=== PATIENT | female | born 1980 | race Caucasian/White ===

== ENCOUNTER 2019-08-19 20:16 | Emergency (ER) | payer OTHER ==
[~2019-08-19] VITALS: Ht 162.6 cm; Wt 68.0 kg
[2019-08-19 20:26] VITALS: BP 132/83
--- NOTE | 2019-08-19 20:46 | NUR ---
Patient discharged to home in stable condition. Written and verbal after care instructions given. Patient verbalizes understanding of instruction. Pt ambulatory with a steady gait
== END 2019-08-19 20:47 | disposition home or self-care (01) ==
LOC: ER 20:20
DX: J32.9 Chronic sinusitis, unspecified (principal); G43.909 Migraine, unspecified, not intractable, without status migrainosus; Z90.89 Acquired absence of other organs

== ENCOUNTER 2019-08-20 17:58 | Emergency (ER) | payer OTHER ==
[~2019-08-20] VITALS: Ht 162.6 cm; Wt 68.0 kg
--- NOTE | 2019-08-20 18:13 | NUR ---
PT BIB C/O L FACIAL SWELLING AND HEADACHE, PT IS AAOX4, NOT IN RESPIRATORY DISTRESS, HOOKED TO MONITOR, KEPT RESTED AND COMFORTABLE, WILL CONTINUE TO MONITOR.
--- NOTE | 2019-08-20 18:23 | NUR ---
SEEN AND EXAMINED BY ZIA FARAH
--- NOTE | 2019-08-20 18:28 | NUR ---
URINE SPECIMEN COLLECTED AND SENT TO LAB.
[2019-08-20] MEDS ORDERED: ONDANSETRON HCL/PF 4 MG/2 ML VIAL ONE (18:29)
[2019-08-20] MEDS ORDERED: IV NS 0.9% 1,000 ML BAG IV ONE (18:30)
[2019-08-20] MEDS ORDERED: MORPHINE SULFATE INJ 2 MG/ML DISP.SYRIN IV ONE (18:30)
[2019-08-20] MEDS ORDERED: MORPHINE SULFATE INJ 4 MG/ML DISP.SYRIN ONE (18:30)
[2019-08-20] MEDS ORDERED: ONDANSETRON HCL/PF 4 MG/2 ML VIAL IVP ONE (18:30)
--- NOTE | 2019-08-20 18:30 | NUR ---
IV LINE ESTABLISHED, BLOOD DRAWN AND SENT TO LAB.
[2019-08-20 18:32] LABS: BASOPHILS # (AUTO) 0.1 /CMM (0.0-0.2); BASOPHILS % (AUTO) 0.6 % (0.0-2.0); EOSINOPHILS % (AUTO) 0.8 % (0.0-6.0); HEMATOCRIT 42 % (33-45); HEMOGLOBIN 13.9 g/dL (11.5-14.8); LYMPHOCYTES # (AUTO) 1.3 /CMM (0.8-4.8); LYMPHOCYTES % (AUTO) 9.8 % (20.0-44.0); MEAN CORPUSCULAR HGB CONC 33 g/dl (31.0-36.0); MEAN CORPUSCULAR VOLUME 92 fL (82-100); MONOCYTES # (AUTO) 0.7 /CMM (0.1-1.30); MONOCYTES % (AUTO) 4.9 % (2.0-12.0); NEUTROPHILS # (AUTO) 11.3 /CMM (1.8-8.9); NEUTROPHILS % (AUTO) 83.9 % (43.0-81.0); PLATELET COUNT (AUTO) 217 /CMM (150-450); RED BLOOD CELL COUNT(AUTO) 4.53 MIL/uL (4.0-5.2); WHITE BLOOD COUNT (AUTO) 13.4 K/uL (4.3-11.0)
[2019-08-20 18:42] LABS: CALCIUM, SERUM 9.4 mg/dL (8.5-10.1); CREATININE 0.8 mg/dL (0.6-1.3); POTASSIUM 3.3 mmol/L (3.5-5.1)
--- NOTE | 2019-08-20 18:58 | NUR ---
PT IS BACK FROM THE CT SCAN.
[2019-08-20] MEDS ORDERED: predniSONE 20 MG TABLET ONE (19:38)
[2019-08-20 19:40] VITALS: BP 124/81
--- NOTE | 2019-08-20 19:40 | NUR ---
IV removed. Catheter intact and site benign. Pressure and 4x4 applied to site. No bleeding noted. Patient discharged to home in stable condition. Written and verbal after care instructions given. Patient verbalizes understanding of instruction.
[2019-08-20] MEDS ORDERED: predniSONE 20 MG TABLET PO ONE (20:00)
== END 2019-08-20 19:48 | disposition home or self-care (01) ==
LOC: ER 18:16
DX: J32.0 Chronic maxillary sinusitis (principal); G43.909 Migraine, unspecified, not intractable, without status migrainosus; Z90.89 Acquired absence of other organs; Z98.890 Other specified postprocedural states
CPT/HCPCS: 36415; 70486; 80048; 84703; 85025; 96374; 96375; 99284; J2270; J2405; J7030; J7512